=== PATIENT | male | born 1945 | race Caucasian/White ===

== ENCOUNTER 2022-07-11 13:15 | Outpatient (CLI) | payer MEDICARE, BC ==
[2022-07-11] MEDS ORDERED: Magnevist 469MG/ML 20 ML VIAL ONE (14:19)
== END 2022-07-11 13:16 | disposition home or self-care (01) ==
LOC: CSHMRI 13:15
PROVIDERS: ATTEND Otolaryngology Plastic Surgery within the Head & Neck
DX: H90.3 Sensorineural hearing loss, bilateral (principal); R90.82 White matter disease, unspecified; H74.8X3 Other specified disorders of middle ear and mastoid, bilateral
CPT/HCPCS: 70553; 82565; A9579